=== PATIENT | male | born 1960 | race Caucasian/White ===

== ENCOUNTER → 2021-11-11 09:06 | Outpatient (BNVA) | payer OTHER, MEDICARE, SELFPAY | PROVIDERS: Visit Provider Nurse Practitioner Family | DX: I10 Essential (primary) hypertension (principal); E11.9 Type 2 diabetes mellitus without complications | CPT/HCPCS: 80053; 80061; 82043; 83036; 84443; 85025 ==

== ENCOUNTER 2021-12-09 15:55 | Observation (INO) | payer MEDICARE, SELFPAY ==
[2021-12-09] VITALS (8 sets, daily range): BP systolic 122–166; BP diastolic 76–105; PULSE 88–97; RESP 16–20; TEMP 36.2–36.7; O2SAT 86–98; BMI 29.8
--- NOTE | 2021-12-09 16:03 | ECG_ITS ---
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 Measurements Intervals [place] Rate: 96 P: 36 OH: 154 QRS: -11 QRSD: 110 T: 15 QT: 359 QTc: 455 Interpretive Statements SINUS RHYTHM No previous ECG available for comparison Electronically Signed On 12-09-2021 18:30:06 CDT by Gonsalo Ni M.D. [id number]
--- NOTE | 2021-12-09 16:09 | XRR_ITS ---
PROCEDURE INFORMATION: Exam: XR Chest Exam date and time: 12/09/2021 4:35 PM Age: 61 years old Clinical indication: Pain; Angina pectoris; Additional info: Chest pain TECHNIQUE: Imaging protocol: XR of the chest. Views: 1 view. COMPARISON: No relevant prior studies available. FINDINGS: Lungs: Unremarkable. No consolidation. Pleural spaces: Unremarkable. No pleural effusion. No pneumothorax. Heart/Mediastinum: Unremarkable. No cardiomegaly. Bones/joints: Unremarkable. XR/XR chest 1V portable [id number] IMPRESSION: No acute findings.
--- NOTE | 2021-12-09 16:15 | ED_ITS ---
HPI - Chest Pain General: Chief Complaint: Chest Pain Stated Complaint: chest pain Time Seen by Provider: 12/09/21 16:14 [facility] PFSH: Social History Smoking and tobacco status: never smoked Course Vital Signs: Vital signs: Vital Signs Temperature 97.1 F L 12/09/21 16:03 Pulse Rate 97 12/09/21 16:03 Respiratory Rate 16 12/09/21 16:03 Blood Pressure 166/96 12/09/21 16:03 Pulse Oximetry 98 12/09/21 16:03 Discharge Plan Discharge Condition: Stable Prescriptions: No Action tramadol 50 mg tablet 50 mg PO DAILY 0RF metformin 500 mg tablet 1,000 mg PO DAILY Qty: 60 0RF lisinopril 10 mg tablet 10 mg PO DAILY Qty: 90 3RF Tresiba FlexTouch U-200 200 unit/mL (3 mL) insulin pen 53 unit SUBCUT DAILY Qty: 9 2RF Coding Level of Care Code ED Nondestructive Tester for Kate Reyes
--- NOTE | 2021-12-09 16:15 | ED_ITS ---
HPI - General Adult General: Chief complaint: Chest Pain Stated complaint: chest pain Time Seen by Provider: 12/09/21 16:14 History of Present Illness: HPI: This is a [61]yo patient hx of DM, HTN, CAD w/ stent x 1 presenting to the ED complaining of acute sudden onset intermittent pressure-like chest pain x20 minutes. This occurred around 2 PM today. Patient tells me that he discontinued taking his aspirin about 40 weeks ago. Since then, patient has been doing well. Patient tells me that the chest pressure he experienced earlier today is similar to his prior episode of heart attack in 2014 for which he presented to [place] emergency room and had a stent placed. Patient not currently followed by any stitchdowns toe former. Patient has not been taking Plavix. No associated with shortness of breath, chest pain or dyspnea on exertion. Pain is not tearing in nature and does not radiate to the back. Pain not associated with vomiting or PO intake. Denies any recent sympatho mimetic drug use. Patient denies any cough. Denies palpitations, dysphagia, diaphoresis, radiation of pain to bilateral arms, jaw. Denies F/N/V/D. Patient denies any recent immobility, surgery, unilateral leg swelling, or prior PE. Patient denies any orthopnea. Onset: 2hr ago Duration: 20 minutes Location: home Severity: moderate Associated symptoms: Reports chest pain; Deny dyspnea, nausea, rash, palpitations or vomiting Review of Systems Const: Denies: fever(s) or chills Eyes: Denies: change in vision ENMT: Denies: mouth pain Card: Reports: chest pain; Denies: palpitations Resp: Denies: dyspnea or non-productive cough GI: Denies: abdominal pain, nausea, vomiting or diarrhea : Denies: dysuria Musc: Denies: extremity pain Skin/Breast: Denies: rash or new lesions Neuro: Denies: weakness in extremities Psych: Reports: other (Normal mood) Cash/Lymph: Denies: easy bruising PFS ED PFSH: Medical History Diabetes Social History Smoking and tobacco status: never smoked Alcohol intake: never Substance/Drug Use: never Physical Exam Const: COMMON NORMALS: alert HENMT: COMMON NORMALS: atraumatic HEAD & SCALP: atraumatic MOUTH: moist mucous membranes not abnormal Eye: COMMON NORMALS: EOMs intact bilaterally and conjunctivae normal CONJUNCTIVA: Yes conjunctivae normal Neck/C-Spine: COMMON NORMALS: full ROM and supple Resp: COMMON NORMALS: normal respiratory effort and clear to auscultation bilaterally AUSCULTATION: clear to auscultation bilaterally Cardio: COMMON NORMALS: regular rate RATE: regular rate OTHER: 2+ radial pulses b/l GI: COMMON NORMALS: Soft to palpation and non-tender PALPATION: Yes Soft to palpation Extremity: COMMON NORMALS: full ROM Neuro: SENSORIUM/ORIENTATION: Yes alert MOTOR EXAM: No Abnormal motor s trength present and Other motor observations present (no focal motor deficits) Psych: COMMON NORMALS: speech normal SPEECH: Yes normal speech MOOD & AFFECT: Yes euthymic mood Course Vital Signs: Vital signs: Vital Signs Temperature 97.1 F L 12/09/21 16:03 Pulse Rate 97 12/09/21 16:03 Respiratory Rate 16 12/09/21 16:03 Blood Pressure 166/96 12/09/21 16:03 Pulse Oximetry 98 12/09/21 16:03 MDM - General Adult Medical Decision Making [61]yo patient w/ hx of DM, HTN, CAD s/p stent x 1 presenting to the ED with evaluation of new onset chest presssure lasting for 20 minutes. HDS, pulse 2+ radially bilaterally, no signs of fluid overload, AAOx3, neuro exam intact. Cu rrently chest pain free Workup: ECG x 2, CXR, CBC, BMP, Troponin x2 Interventions: ASA Findings: ECG: No overt evidence of STEMI, hyperacute T waves, localizable STD or T wave inversions. No evidence of Brugada?s sign, delta wave, epsilon wave, significantly prolonged QTc, or malignant arrhythmia. No Q waves. Other Labs unremarkable for emergent problems. CXR: Without PTX, PNA, or widened mediastinum Last Heart Catheterization: 2013 [7:15pm] On reassessment, the patient is HDS, no complaints of persistent chest pain in the ED after evaluation. ECG is non-ischemic. Troponin x2 with delta less than 5. At the present time, given patient is not medically optimized, not followed by Cardiology, has not been taking his aspirin/plavix and has a stent, the decision was made to admit patient for stress test and further workup. Disposition: admission Lab Data : 12/09/21 16:25 12/09/21 16:25 Radiology Impressions Chest X-Ray 12/09/21 16:09 IMPRESSION: No acute findings. Laboratory Results WBC 9.5 10^3/uL (4.0-10.0) 12/09/21 16:25 RBC 4.81 10^6/uL (4.1-5.3) 12/09/21 16:25 Hgb 14.6 g/dL (11.7-16.6) 12/09/21 16:25 Hct 41.5 % (42.0-52.0) L 12/09/21 16:25 MCV 86.3 fl (80-94) 12/09/21 16:25 MCH 30.4 pg (28.0-34.0) 12/09/21 16:25 MCHC 35.2 g/dL (30.0-36.0) 12/09/21 16:25 RDW 12.5 % (12.1-15.1) 12/09/21 16:25 Plt Count 273 10^3/cmm (130-400) 12/09/21 16:25 MPV 10.2 fL (7.4-10.4) 12/09/21 16:25 Neut % (Auto) 67.1 % 12/09/21 16:25 Lymph % (Auto) 23.1 % 12/09/21 16:25 Darke % (Auto) 6.9 % 12/09/21 16:25 Eos % (Auto) 2.3 % 12/09/21 16:25 Baso % (Auto) 0.3 % 12/09/21 16:25 Neut # (Auto) 6.37 10^3/uL (1.8-7.7) 12/09/21 16:25 Lymph # (Auto) 2.2 10^3/uL (0.8-4.8) 12/09/21 16:25 Darke # (Auto) 0.7 10^3/uL (0.2-0.9) 12/09/21 16:25 Eos # (Auto) 0.2 10^3/uL (0.0-0.8) 12/09/21 16:25 Baso # (Auto) 0.0 10^3/uL (0.0-0.1) 12/09/21 16:25 Nucleated RBC % (auto) 0 % 12/09/21 16:25 Nucleated RBCs # 0.0 /100WBC 12/09/21 16:25 Sodium 138 mmol/L (136-145) 12/09/21 16:25 Potassium 4.4 mmol/L (3.5-5.1) 12/09/21 16:25 Chloride 101 mmol/L (98-107) 12/09/21 16:25 Carbon Dioxide 25 mmol/L (22-29) 12/09/21 16:25 Anion Gap 16.4 (5-19) 12/09/21 16:25 BUN 21 mg/dL (8-23) 12/09/21 16:25 Creatinine 0.8 mg/dL (0.7-1.2) 12/09/21 16:25 GFR Calculation 97.6 mL/min (90-130) 12/09/21 16:25 Glucose 335 mg/dL (65-115) H 12/09/21 16:25 POC Glucose 278 mg/dL (70-110) H 12/09/21 16:46 Calculated Osmolality 302 mOsm/kg (285-295) H 12/09/21 16:25 Calcium 9.4 mg/dL (8.5-10.5) 12/09/21 16:25 Troponin T Baseline 22 ng/L (0-15) H 12/09/21 16:25 Imaging Data Other Imaging: Radiologist's impression: [address] [address] XRay Report Signed Patient: Bairon Hodge Unit #: [id number] : 1960 Age/Sex: 61 / M ADM Date: 12/09/21 Loc: ER Room/Bed: Attending Dr: Ordering Provider/Ordering MD: Nadine Nash MD Date of Service: 12/09/21 Procedure(s): XR chest 1V portable [id number] Accession Number(s): [id number] Report Number: [id number] PROCEDURE INFORMATION: Exam: XR Chest Exam date and time: 12/09/2021 4:35 PM Age: 61 years old Clinical indication: Pain; Angina pectoris; Additional info: Chest pain TECHNIQUE: Imaging protocol: XR of the chest. Views: 1 view. COMPARISON: No relevant prior studies available. FINDINGS: Lungs: Unremarkable. No consolidation. Pleural spaces: Unremarkable. No pleural effusion. No pneumothorax. Heart/Mediastinum: Unremarkable. No cardiomegaly. Bones/joints: Unremarkable. XR/XR chest 1V portable [id number] IMPRESSION: No acute findings. ? Dictated By: Elias Deshpande MD Signed By: Elias Deshpande MD Signed Date/Time: 12/09/21 1647 DD/ 1635 Discharge Plan Discharge Patient Disposition: Admitted As Inpatient Clinical Impression: Chest pressure Condition: Stable Coding Level of Care Code ED Telegraph Messenger for Chg Fwd Exam Comprehensive
[2021-12-09] MEDS: aspirin 325 mg Tablet PO (16:36)
--- NOTE | 2021-12-09 16:37 | PC.PHAR ---
pt states he takes care of his own medications-pt states he stop taking his aspirin 81mg hs because he saw on tic tok it would kill him-pt states not taken in 4 weeks or so-notes are made in the pharmacy comments
[2021-12-09 16:39] LABS: Basophils % 0.3 %; Eosinophils # 0.2 10^3/uL (0.0-0.8); Eosinophils % 2.3 %; Hematocrit 41.5 % (42.0-52.0); Hemoglobin 14.6 g/dL (11.7-16.6); Lymphocytes # 2.2 10^3/uL (0.8-4.8); Lymphocytes % 23.1 %; Mean Corpuscular HGB Conc 35.2 g/dL (30.0-36.0); Mean Corpuscular Hemoglobin 30.4 pg (28.0-34.0); Mean Corpuscular Volume 86.3 fl (80-94); Mean Platelet Volume 10.2 fL (7.4-10.4); Monocytes # 0.7 10^3/uL (0.2-0.9); Monocytes % 6.9 %; Neutrophils # 6.37 10^3/uL (1.8-7.7); Neutrophils % 67.1 %; Nucleated Red Blood Cells % 0 %; Platelet Count 273 10^3/cmm (130-400); Red Blood Count 4.81 10^6/uL (4.1-5.3); Red Cell Distribution Width 12.5 % (12.1-15.1); White Blood Count 9.5 10^3/uL (4.0-10.0)
[2021-12-09 16:50] LABS: Glucose Point of Care 278 mg/dL (70-110)
[2021-12-09 17:11] LABS: Troponin(5th) Baseline 22 ng/L (0-15)
[2021-12-09 17:17] LABS: Anion Gap 16.4 (5-19); Blood Urea Nitrogen 21 mg/dL (8-23); Calcium 9.4 mg/dL (8.5-10.5); Carbon Dioxide 25 mmol/L (22-29); Chloride 101 mmol/L (98-107); Glomerular Filtration Rate 97.6 mL/min (90-130); Glucose 335 mg/dL (65-115); Osmolality Calculated 302 mOsm/kg (285-295); Potassium 4.4 mmol/L (3.5-5.1); Sodium 138 mmol/L (136-145)
--- NOTE | 2021-12-09 18:09 | ECG_ITS ---
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 Measurements Intervals [place] Rate: 91 P: 26 MI: 144 QRS: -9 QRSD: 113 T: 24 QT: 366 QTc: 452 Interpretive Statements SINUS RHYTHM INCOMPLETE RIGHT BUNDLE BRANCH BLOCK [90+ ms QRS DURATION, TERMINAL R IN V1/V2, 40+ ms S IN I/aVL/V4/V5/V6] NONSPECIFIC ST ELEVATION [0.05+ mV ST ELEVATION] Compared to ECG 12/09/2021 16:12:27 Incomplete right bundle-branch block now present ST (T wave) deviation now present Electronically Signed On 12-09-2021 18:33:20 CDT by Gonsalo Ni M.D. [id number]
--- NOTE | 2021-12-09 18:17 | PC.NURSE ---
EKG done at 1812 and shown to ER doctor
--- NOTE | 2021-12-09 19:18 | P.HP_ITS ---
Providers/Chief Complaint Admitting Physician: Ian Jessica MD Chief Complaint: chest pain History of Present Illness Bairon Hodge is a 61 year old male with a past medical history significant for type 2 diabetes mellitus, hypertension, obesity, and coronary artery disease with prior myocardial infarction status post stent x1 in 2013 at [facility] who presents to the emergency department complaining of left-sided chest pain x1 day. Patient reports he was in his usual state of health until today. He reports he cut his yard this morning. He states that he drove to the store afterwards and around 1 PM while standing and talking to another person he developed left-sided chest pressure associated with shortness of breath. He reports the pain was severe for about 20 minutes. States he had to leave and drive home due to the severity of the pain. States once at home, he took 2 Kay aspirins. States that pain slowly let up. He reports the pain was similar to his prior heart attack in 2013 prompting him to be evaluated at the emergency department. Pain eventually resolved around 4 PM for total of 3 hours duration. Of note, patient states he quit taking his aspirin about 3 to 4 weeks ago after hearing on TV was bad for you. He denies any associated fever, chills, palpitations, diaphoresis, or radiation of the pain. In the ED, troponin was within normal limits and EKG revealed some nonspecific T wave changes. Review of Systems Narrative: A complete review of systems was obtained and is negative except as stated in HPI. Medications/Allergies Home Medications Medication Instructions Recorded Confirmed Last Taken Type insulin degludec 200 unit/mL (3 54 unit SUBCUT BEDTIME 12/09/21 12/09/21 12/08/21 History mL) subcutaneous pen (Tresiba FlexTouch U-200 insulin) lisinopril 10 mg tablet 10 mg PO BEDTIME 12/09/21 12/09/21 12/08/21 History metformin 500 mg tablet 1,000 mg PO BEDTIME 12/09/21 12/09/21 12/08/21 History Allergies Allergy/AdvReac Type Severity Reaction Status Date / Time Penicillins Allergy Unknown Verified 12/09/21 16:35 PFSH Acute PFSH: Medical History Coronary artery disease Diabetes Hypertension Obesity Type 2 diabetes mellitus Family History Father Parkinson disease Mother Emphysema lung Social History Smoking and tobacco status: never smoked Alcohol intake: never Substance/Drug Use: never Vitals/I&O/Wt Last Vital Signs Temp 97.1 F L 12/09/21 16:03 Pulse 97 12/09/21 16:03 Resp 16 12/09/21 16:03 BP 166/96 12/09/21 16:03 Pulse Ox 98 12/09/21 16:03 Weight last 48 hrs Weight 99.79 kg Physical Exam Narrative: General: Patient is awake and alert. Head: Normocephalic. Atraumatic. EOM intact. Neck: No JVD. Cardiovascular: RRR. No gallops. No murmurs. No peripheral edema. Lungs: Clear to auscultation, no use of accessory muscles, no crackles or wheezes. Skin: No jaundice. No rashes. Abdomen: Normal bowel sounds, abdomen soft and nontender. Genito Urinary: Genital exam not performed since complaints not related. Rectal: Rectal exam not performed since no symptoms indicated blood loss. Extremeties: No cyanosis or clubbing. Musculoskeletal: 5/5 strength, normal range of motion, no swollen or erythem atous joints. Neurological: Moves all 4 extremities. No myoclonus. Data : 12/09/21 16:25 12/09/21 16:25 A&P Assessment and plan (1) Chest pressure: Presentation concerning for unstable angina Multiple risk factors including prior CAD, prior TN, type 2 diabetes mellitus, obesity, hypertension EKG with nonspecific T wave changes Repeat EKG in a.m. Telemetry monitoring Initial troponin negative Trend troponins N.p.o. after midnight Myocardial stress test ordered Transthoracic echocardiogram A1c and lipids for risk stratification Start aspirin High intensity statin Nitroglycerin as needed Status: Acute (2) Coronary artery disease: With history of TN and cardiac stent in 2013 Management as above Status: Acute (3) Hypertension: Continue home lisinopril Status: Acute (4) Type 2 diabetes mellitus: Hold home metformin Lantus 40 units nightly (home dose 54 units) Sliding scale insulin correction Status: Acute (5) Obesity: Patient would eventually benefit from weight loss Status: Acute Plan DVT prophylaxis: Lovenox CODE STATUS: Full code Attestations Medical Necessity Statement*: Patient presents with chest pain with expected hospitalization not to cross 2 midnights. Coding Level of Care Code Acute Customer Professional for Winnieg Fwd Diagnoses Chest pressure R07.89 Hypertension I10 Type 2 diabetes mellitus E11.9 Coronary artery disease I25.10 Obesity E66.9
[2021-12-09 19:19] LABS: Troponin 5 2HR 17.89 ng/L (0-15); Troponin 5 2HR Delta -4.11 ABS# (0-10)
[2021-12-09 20:54] LABS: Chol HDL Ratio 3.35 mg/dL (1.0-5.00); Cholesterol 104 mg/dL (0-200); HDL Cholesterol 31 mg/dL (60-100); LDL Cholesterol Calculated 40 mg/dL (50-129); LDL HDL Ratio 1.29 RATIO (0.00-3.22); Triglycerides 167 mg/dL (0-150)
--- NOTE | 2021-12-09 21:34 | PC.NURSE ---
Patient report called to floor.
[2021-12-09 23:00] LABS: Glucose Point of Care 320 mg/dL (70-110)
[2021-12-09] MEDS: lisinopril 10 mg Tablet PO (23:12)
[2021-12-09] MEDS: enoxaparin 40 mg/0.4 mL Syringe SUBCUT (23:12)
[2021-12-09] MEDS: atorvastatin 40 mg Tablet 80 MG PO (23:12)
[2021-12-09] MEDS: insulin lispro 100 unit/1 mL SUBCUT (23:21)
--- NOTE | 2021-12-09 23:30 | PC.NURSE ---
Patient refusing Humalog, Lovenox, and Lantus. After extensive time spent educating patient, patient agreeable to take Humalong and Lovenox, but still refusing Lantus. Patient states on the internet, it says all the medications they put in your body to terrible things to you.
[2021-12-09 23:59] LABS: Troponin 5 6HR 15.51 ng/L (0-15)
[2021-12-10] VITALS: BP 122/83; PULSE 86; RESP 17; TEMP 36.5; O2SAT 94
[2021-12-10 00:01] LABS: Troponin 5 6HR Delta -6.49 ng/L (0-12)
[2021-12-10 00:09] LABS: Estmated Average Glucose 255; Hemoglobin A1C 10.5 % (4.0-6.0)
[2021-12-10 01:11] LABS: Add Urine Microscopic? NO; Charge for UA Resulting for Rev
[2021-12-10 01:16] LABS: Bilirubin Urine Neg (Negative); Blood Urine Neg (Negative); Glucose Urine UA 4+ (Normal); Ketones Urine Negative (Negative); Leukocyte Esterase Urine Negative (Negative); Nitrate Urine Negative (Negative); Protein Urine Neg (Negative); Specific Gravity, Urine 1.015 (1.005-1.030); Urine Appearance Clear (CLEAR); Urine Color Yellow (Yellow); Urobilinogen Urine Norm (Negative); pH Urine 6 (5-7)
[2021-12-10 03:30] VITALS: PULSE 82
--- NOTE | 2021-12-10 03:50 | USCV_ITS ---
Ayesha Bairon Age: 61 Gender: M : 1960 Exam Date: 12/10/2021 03:58 Ordering Phys: Ian Jessica MD Technologist: CKVeda [place] [facility] [place]: chest pain BP: 116 / 78 HR: 79 Rhythm: Sinus Technical Quality: Adequate MEASUREMENTS (Male / Female) Normal Values 2D ECHO LV Diastolic Diameter PLAX 4.8 cm 4.2 - 5.9 / 3.9 - 5.3 cm LV Systolic Diameter PLAX 2.8 cm IVS Diastolic Thickness 1.3 cm 0.6 - 1.0 / 0.6 - 0.9 cm IVS Systolic Thickness 1.7 cm LVPW Diastolic Thickness 1.3 cm 0.6 - 1.0 / 0.6 - 0.9 cm LVPW Systolic Thickness 2.8 cm LVOT Diameter 2.0 cm LV Ejection Fraction 2D Teich 67.8 % LV Ejection Fraction MOD 2C 35.6 % LV Ejection Fraction 2C AL 32.8 % LA Diameter 4.5 cm LA Width 4.7 cm LA Height 6.2 cm RA Width 3.6 cm RA Height 5.3 cm Aorta at Sinotubular Diameter 2.8 cm M-MODE Aortic Annulus Diameter 3.5 cm LA Ao Ratio MM 1.5 MV E Point Septal Separation 0.4 cm DOPPLER TR Peak Velocity 177.9 cm/s TR Peak Gradient 12.7 mmHg TR Mean Velocity 141.6 cm/s TR Mean Gradient 9.3 mmHg TR Velocity Time Integral 45.4 cm Right Atrial Pressure 10.0 mmHg Pulmonary Artery Systolic Pressu 22.7 mmHg PV Peak Velocity 79.0 cm/s RV Acceleration Time 0.1 s RV Ejection Time 0.3 s RV AcT/ET 0.5 FINDINGS Left Ventricle Normal left ventricular cavity size. Mildly increased left ventricular wall thickness. Normal left ventricular systolic function. Left ventricular ejection fraction is estimated at 55- 60 %. There is possible mild hypokinesis of basal inferolateral wall. Right Ventricle Normal right ventricular size and systolic function. Right Atrium Right atrium not well visualized. Left Atrium Mildly increased left atrial size. Mitral Valve Structurally normal mitral valve. Aortic Valve Structurally normal trileaflet aortic valve. Tricuspid Valve Structurally normal tricuspid valve. Pulmonic Valve Pulmonic valve not well visualized. Pericardium No pericardial effusion. Aorta Normal size aortic root and proximal ascending aorta. IVC Inferior vena cava not visualized. CONCLUSIONS 1. This is a limited and technically difficult echocardiogram with off axis images. Contrast could not be used as patient did not have an IV. 2. Normal left ventricular cavity size. Mildly increased left ventricular wall thickness. Normal left ventricular systolic function. Left ventricular ejection fraction is estimated at 55- 60 %. There is possible mild hypokinesis of basal inferolateral wall. 3. Repeat study with echo contrast is recommended. 4. No prior similar studies to compare. Concha Lassiter MD (Electronically Signed) Final Date: 10 December 2021 13:24 S
[2021-12-10 03:56] VITALS: BP 116/78; PULSE 76; RESP 17; TEMP 36.6; O2SAT 97
[2021-12-10 03:58] LABS: Troponin T (5th) Once 23 ng/L (0-15)
--- NOTE | 2021-12-10 06:00 | ECG_ITS ---
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 Interpretive Statements NAME OF STUDY: LEXISCAN SESTAMIBI STRESS TEST INDICATION: [Chest Pain] Procedure: At the baseline, the blood pressure was 114/75 mmHg with a heart rate of 81 bpm. The electrocardiogram showed normal sinus rhythm, normal axis with normal ST and T's. The Lexiscan was infused over a period of 20 seconds. A total of 0.4 mg of Lexiscan was infused. The stress phase was continued for a total of 5 minutes. Heart rate was at the end of stress phase was 88 bpm and a blood pressure of 124/75 mmHg. The EKG at the peak infusion revealed since normal sinus rhythm with no significant ST-T wave changes. Sestamibi was injected 20 seconds after the Lexiscan infusion. Blood pressure at the end of recovery phase was 124/82 mmHg with a heart rate of 88 bpm. Conclusion: 1. Normal EKG response to Lexiscan infusion 2. No Lexiscan induced chest pain or cardiac arrhythmia. 3. Normal blood pressure and heart rate response. 4. Sestamibi/sestamibi perfusion scan pending; see separate report. Electronically Signed On 01-17-2022 11:46:55 CDT by Gonsalo Ni M.D. [id number]
--- NOTE | 2021-12-10 06:00 | ECG_ITS ---
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 Measurements Intervals [place] Rate: 82 P: 34 PA: 136 QRS: 4 QRSD: 120 T: 35 QT: 395 QTc: 464 Interpretive Statements SINUS RHYTHM POSSIBLE RIGHT VENTRICULAR CONDUCTION DELAY [RSR (QR) IN V1/V2] NONSPECIFIC T-WAVE ABNORMALITY Compared to ECG 12/09/2021 18:13:12 T-wave abnormality now present Incomplete right bundle-branch block no longer present ST (T wave) deviation no longer present Electronically Signed On 12-10-2021 22:25:44 CDT by Concha Lassiter M.D. [id number]
[2021-12-10 06:43] LABS: Glucose Point of Care 171 mg/dL (70-110)
[2021-12-10] MEDS: regadenoson 0.4 Mg/5 ml Syringe IVP (07:27)
[2021-12-10 07:30] VITALS: BP 124/82; PULSE 87
[2021-12-10 09:39] VITALS: BP 157/92; PULSE 82; RESP 17; TEMP 36.4; O2SAT 99
--- NOTE | 2021-12-10 11:10 | PC.CHAP ---
Pastoral Care Encounter/Spiritual Assessment Type of Contact [] Declined drug and alcohol counsellor visit [] Patient/Family/Request visit [] Outpatient visit [] Follow-up visit [] Physician referral [] Code/Alert [x] Routine visit [] Staff referral [] Actively dying [] Patient sleeping [] Family support [] [] Out of room [] Palliative care [] [] Receiving care in room [] Pre-surgical visit [] Trauma [] Long length of stay [] ICU visit [] Other: Relational/Emotional Strength [x] Patient feels connected with others/family/visitors/staff [] Distress [] Loneliness/isolation [] Abandonment Spirituality of Patient [x] Person of Brittany [x] Attends Holiness of their Brittany [x] Believes in Prayer [] Reads Bible or Restorationist materials [] There are Spiritual issues to be addressed Medical I D Sales Interventions [x] Prayer [x] Active listening [x] Non-anxious presence [] Spiritual/emotional support [] Crisis/trauma care [] Spiritual counseling [] Bereavement support [] Provided bereavement packet [] Provided Bible/devotional materials [] Provided toy/stuffed animal, coloring book to patient or family member [] Provided Communion [] Anointing/[place] [] Salvation [x] Completed spiritual assessment [] Other: Impact on Illness or Injury [] Angry [] Fearful [] Anxious [] Often cries [] Exhaustion [] Unable to work [] Unable to attend judaism [] Unable to walk/stand [] Unable to read [] Unable to drive [] Unable to eat/drink [] Unable to sleep [] Unable to be with family [] Patient intubated [] Other: Summary Time spent with patient 10 min
[2021-12-10 11:25] LABS: Glucose Point of Care 193 mg/dL (70-110)
--- NOTE | 2021-12-10 11:54 | PM.DCS ---
Discharge Providers Date of Admission: 12/09/21 19:37 Date of Discharge: December 10, 2021 Attending Provider at Admission: Ian Jessica MD Attending Provider at Discharge: Corbin Carney MD Diagnoses at Discharge Discharge Diagnosis (1) Chest pressure: Status: Acute (2) Coronary artery disease: Status: Acute (3) Hypertension: Status: Acute (4) Type 2 diabetes mellitus: Status: Acute (5) Obesity: Status: Acute Reason for Visit Reason for Visit: chest pain Brief History: History as per HPI: Bairon Hodge is a 61 year old male with a past medical history significant for type 2 diabetes mellitus, hypertension, obesity, and coronary artery disease with prior myocardial infarction status post stent x1 in 2013 at [facility] who presents to the emergency department complaining of left-sided chest pain x1 day.? Patient reports he was in his usual state of health until today.? He reports he cut his yard this morning.? He states that he drove to the store afterwards and around 1 PM while standing and talking to another person he developed left-sided chest pressure associated with shortness of breath.? He reports the pain was severe for about 20 minutes.? States he had to leave and drive home due to the severity of the pain.? States once at home, he took 2 Kay aspirins.? States that pain slowly let up.? He reports the pain was similar to his prior heart attack in 2013 prompting him to be evaluated at the emergency department.? Pain eventually resolved around 4 PM for total of 3 hours duration. Of note, patient states he quit taking his aspirin about 3 to 4 weeks ago after hearing on TV was bad for you.? He denies any associated fever, chills, palpitations, diaphoresis, or radiation of the pain.? In the ED, troponin was within normal limits and EKG revealed some nonspecific T wave changes. Hospital Course Hospital Course Patient went to the hospital further evaluation and management of chest pressure. He underwent cardiac stress test next morning on 12/10 which was negative for any acute ischemia. During hospitalization he was found to have elevated blood pressures for which his antihypertensives were adjusted. He was also found to have an A1c of 10.3. Patient did state that there have been times during the day when he feels very lethargic and becomes better after taking insulin at night. Patient was counseled in detail regarding moderate dose insulin sliding scale to be taken 3 meals after checking his blood sugar daily. He verbalized understanding and is agreeable to start short acting insulin prior to meals. He is been discharged hemodynamically stable condition on lisinopril 40 mg daily which is higher than his home dose. He is advised to check his blood pressure daily at home and follow-up with a primary care provider within next 1 week for further adjustment of antihypertensives. He is also being discharged on glimepiride 1 mg daily along with his home dose of metformin and Tresiba. Moderate dose insulin sliding scale of insulin lispro has been added to his medication list. He is to check his blood sugar prior to meals 3 times a day and take insulins accordingly. Patient should have a repeat HbA1c in 6 months. Physical Exam Narrative: General: Patient is awake and alert. Head: Normocephalic. Atraumatic. EOM intact. Neck: No JVD. Cardiovascular: RRR. No gallops. No murmurs. No peripheral edema. Lungs: Clear to auscultation, no use of accessory muscles, no crackles or wheezes. Skin: No jaundice. No rashes. Abdomen: Normal bowel sounds, abdomen soft and nontender. Genito Urinary: Genital exam not performed since complaints not related. Rectal: Rectal exam not performed since no symptoms indicated blood loss. Extremeties: No cyanosis or clubbing. Musculoskeletal: 5/5 strength, normal range of motion, no swollen or erythematous joints. Neurological: Moves all 4 extremities. No myoclonus. Discharge Data Studies Completed and Pending Completed Studies During Hospitalization Category Date Time Status Sestamibi Stress Test Request Routine Exams 12/10/21 06:00 Draft XR chest 1V portable [id number] Stat Exams 12/09/21 16:09 Completed NM pa perf SPECT r/s* [id number] Routine Nuc Med 12/10/21 19:20 Completed Pending at discharge Category Date Time Status Sestamibi Stress Test Request Routine Exams 12/10/21 06:00 Ordered CV. echo lmt w/w contras [id number] Routine Ultrasound 12/10/21 03:50 Taken Radiology Impressions Chest X-Ray 12/09/21 16:09 IMPRESSION: No acute findings. Lexiscan perfusion test: PERFUSION FINDINGS ?There is moderate and sized fixed perfusion defect noted in apical lateral and?inferolateral conner.? This is consistent with prior infarct and left circumflex?artery territory.? No evidence of ischemia seen. ?FUNCTIONAL RESULTS ? ? (calculated via Gated SPECT) ? Stress Image LV EF (%):? ? 62 ? Stress EDV (mL):89 ? TID:? 0.98 ? Stress ESV (mL):34 ?FUNCTIONAL FINDINGS: ?There is normal left ventricular systolic function. ?IMPRESSIONS ?1. Abnormal myocardial perfusion imaging with prior infarct seen in the left?circumflex artery territory with no evidence of ischemia ?2. LV systolic function is normal ?Gonsalo Ni MD ?(Electronically Signed) ?Final Date:? ? ? 10 December 2021 ? 09:20 Laboratory Results WBC 9.5 10^3/uL (4.0-10.0) 12/09/21 16:25 RBC 4.81 10^6/uL (4.1-5.3) 12/09/21 16:25 Hgb 14.6 g/dL (11.7-16.6) 12/09/21 16:25 Hct 41.5 % (42.0-52.0) L 12/09/21 16:25 MCV 86.3 fl (80-94) 12/09/21 16:25 MCH 30.4 pg (28.0-34.0) 12/09/21 16:25 MCHC 35.2 g/dL (30.0-36.0) 12/09/21 16:25 RDW 12.5 % (12.1-15.1) 12/09/21 16:25 Plt Count 273 10^3/cmm (130-400) 12/09/21 16:25 MPV 10.2 fL (7.4-10.4) 12/09/21 16:25 Neut % (Auto) 67.1 % 12/09/21 16:25 Lymph % (Auto) 23.1 % 12/09/21 16:25 [place] % (Auto) 6.9 % 12/09/21 16:25 Eos % (Auto) 2.3 % 12/09/21 16:25 Baso % (Auto) 0.3 % 12/09/21 16:25 Neut # (Auto) 6.37 10^3/uL (1.8-7.7) 12/09/21 16:25 Lymph # (Auto) 2.2 10^3/uL (0.8-4.8) 12/09/21 16:25 [place] # (Auto) 0.7 10^3/uL (0.2-0.9) 12/09/21 16:25 Eos # (Auto) 0.2 10^3/uL (0.0-0.8) 12/09/21 16:25 Baso # (Auto) 0.0 10^3/uL (0.0-0.1) 12/09/21 16:25 Nucleated RBC % (auto) 0 % 12/09/21 16:25 Nucleated RBCs # 0.0 /100WBC 12/09/21 16:25 Sodium 138 mmol/L (136-145) 12/09/21 16:25 Potassium 4.4 mmol/L (3.5-5.1) 12/09/21 16:25 Chloride 101 mmol/L (98-107) 12/09/21 16:25 Carbon Dioxide 25 mmol/L (22-29) 12/09/21 16:25 Anion Gap 16.4 (5-19) 12/09/21 16:25 BUN 21 mg/dL (8-23) 12/09/21 16:25 Creatinine 0.8 mg/dL (0.7-1.2) 12/09/21 16:25 GFR Calculation 97.6 mL/min (90-130) 12/09/21 16:25 Glucose 335 mg/dL (65-115) H 12/09/21 16:25 POC Glucose 193 mg/dL (70-110) H 12/10/21 11:17 Estimat Average Glucose 255 12/09/21 16:25 Hemoglobin A1c 10.5 % (4.0-6.0) H 12/09/21 16:25 Calculated Osmolality 302 mOsm/kg (285-295) H 12/09/21 16:25 Calcium 9.4 mg/dL (8.5-10.5) 12/09/21 16:25 Troponin T Gen 5 ng/L 23 ng/L (0-15) H 12/10/21 03:26 Troponin T Baseline 22 ng/L (0-15) H 12/09/21 16:25 Troponin T 120 Minute 17.89 ng/L (0-15) H 12/09/21 18:47 Delta Troponin T -4.11 ABS# (0-10) L 12/09/21 18:47 Troponin T Hi Sens 6Hr 15.51 ng/L (0-15) H 12/09/21 23:20 Troponin T Hi Sens 6Hr Delta -6.49 ng/L (0-12) L 12/09/21 23:20 Triglycerides 167 mg/dL (0-150) H 12/09/21 16:25 Cholesterol 104 mg/dL (0-200) 12/09/21 16:25 LDL Cholesterol, Calc 40 mg/dL (50-129) L 12/09/21 16:25 HDL Cholesterol 31 mg/dL (60-100) L 12/09/21 16:25 LDL/HDL Ratio 1.29 RATIO (0.00-3.22) 12/09/21 16:25 Cholesterol/HDL Ratio 3.35 mg/dL (1.0-5.00) 12/09/21 16:25 Urine Color Yellow (Yellow) 12/10/21 01:00 Urine Appearance Clear (CLEAR) 12/10/21 01:00 Urine pH 6 (5-7) 12/10/21 01:00 Ur Specific [place] 1.015 (1.005-1.030) 12/10/21 01:00 Urine Protein Neg (Negative) 12/10/21 01:00 Urine Glucose (UA) 4+ (Normal) H 12/10/21 01:00 Urine Ketones Negative (Negative) 12/10/21 01:00 Urine Blood Neg (Negative) 12/10/21 01:00 Urine Nitrate Negative (Negative) 12/10/21 01:00 Urine Bilirubin Neg (Negative) 12/10/21 01:00 Urine Urobilinogen Norm mg/dL (Negative) 12/10/21 01:00 Ur Leukocyte Esterase Negative (Negative) 12/10/21 01:00 Vitals Last Vital Signs Temp 97.5 F L 12/10/21 09:39 Pulse 82 12/10/21 09:39 Resp 17 12/10/21 09:39 BP 157/92 12/10/21 09:39 Pulse Ox 99 12/10/21 09:39 Discharge Plan Discharge Patient Disposition: Home Condition: Stable Prescriptions: New aspirin 81 mg Tablet,Delayed Release (Dr/Ec) 81 mg PO DAILY 30 Days Qty: 30 0RF insulin lispro 100 unit/mL insulin pen See Rx Instructions .ROUTE .COMPLEX Qty: 15 0RF Rx Instructions: 141-180 mg/dl 4 units/SQ 181-220 mg/dl 6 units/SQ 221-260 mg/dl 8 units/SQ 261-300 mg/dl 10 units/SQ 301-350 mg/dl 12 units/SQ 351-400 mg/dl 14 units/SQ greater than 400 mg/dl 16 units/SQ glimepiride 2 mg tablet 1 mg PO QAM Qty: 30 0RF Rx Instructions: administer with breakfast Continued metformin 500 mg tablet 1,000 mg PO BEDTIME 0RF Tresiba FlexTouch U-200 200 unit/mL (3 mL) insulin pen 54 unit SUBCUT BEDTIME 0RF atorvastatin 40 mg Tablet 40 mg PO QPM 0RF Changed lisinopril 10 mg tablet 40 mg PO BEDTIME Qty: 0 0RF Discharge Orders: Discharge Order (Routine); Ordered 12/10/21 Ordered By: Corbin Carney Referrals: Tonya Ovalles MD [Physician] - 02/04/22 2:15 pm Discharge Diet: Cardiac and Diabetic Discharge Activity: Resume usual activity and Increase activity as tolerated Patient Instructions: Opioid Safety Activity Restrictions/Additional Instructions: Take insulin as below. You should check your blood sugar daily 3 meals and take insulin as per directions. Continue taking your Tresiba as before. Continue taking metformin as before. Glimepiride oral has been added to your medication list as well. Insulin sliding scale is as below 141-180 mg/dl take 4 units/SQ ? 181-220 mg/dl take 6 units/SQ ? 221-260 mg/dl take 8 units/SQ ? 261-300 mg/dl take 10 units/SQ ? 301-350 mg/dl take 12 units/SQ ? 351-400 mg/dl take 14 units/SQ ? greater than 400 mg/dl take 16 units/SQ Please do not stop taking aspirin. Dose of lisinopril has been increased to 40 mg daily. Please check your blood pressure at home and maintain blood pressure diary and follow-up with a primary care provider within next 1 week for further adjustment of antihypertensives. Discharge Attestations Time Spent in Discharge Care*: greater than 30 min Specific Discharge Activities: educating patient, discussing with pcp/other providers, discussing with gearcase assembler/social workers/dc planners, documenting/other paperwork and evaluating patient/reviewing data Status at Discharge: Cognitive status at discharge: cognitively intact, Behavioral status at discharge: cooperative, Functional status at discharge: independent ambulation, Overall status at discharge: patient is back to baseline Quality Metrics Clinical Quality Measures [ No reported AMI, CVA or VTE this stay] Coding Level of Care Code Acute Chg FW DC note History Comprehensive Exam Comprehensive Medical Decision Making High Complexity Diagnoses Chest pressure R07.89 Coronary artery disease I25.10 Hypertension I10 Type 2 diabetes mellitus E11.9 Obesity E66.9
[2021-12-10 12:00] VITALS: BP 164/91; PULSE 82; RESP 18; O2SAT 97
--- NOTE | 2021-12-10 19:20 | NMCV_ITS ---
NM pa perf SPECT r/s* [id number] Bairon Hodge Age: 61 Gender: M : 1960 Exam Date: 12/10/2021 07:34 Ordering Phys: Ian Jessica MD Technologist: RACHNA Lora Exam Location: [facility] Indications: CHEST PAIN STRESS TEST Please see separate stress test report in [facility] for full findings IMAGE PROTOCOL Rest/Stress 1 Lexiscan Day Radiopharmaceutical Dose (mCi) Administration Site Administered by Rest: Tc-99m 10.9 IV RACHNA Wasserman Sestamibi Stress:Tc-99m 32.6 IV RACHNA Wasserman Sestamibi Rest: 10-Dec-2021 60 Discovery 630 Stress: 10-Dec-2021 30 Discovery 630 0.4mg Lexiscan. Images obtained in supine and prone position. SPECT RESULTS Technical Quality: Excellent Raw Data Analysis: Normal Image Corrections: No attenuation or motion correction applied Summed Stress Score: 4 Summed Rest Score: 6 Summed Difference Score: 0 PERFUSION FINDINGS There is moderate and sized fixed perfusion defect noted in apical lateral and inferolateral conner. This is consistent with prior infarct and left circumflex artery territory. No evidence of ischemia seen. FUNCTIONAL RESULTS (calculated via Gated SPECT) Stress Image LV EF (%): 62 Stress EDV (mL):89 TID: 0.98 Stress ESV (mL):34 FUNCTIONAL FINDINGS: There is normal left ventricular systolic function. IMPRESSIONS 1. Abnormal myocardial perfusion imaging with prior infarct seen in the left circumflex artery territory with no evidence of ischemia 2. LV systolic function is normal Gonsalo Ni MD (Electronically Signed) Final Date: 10 December 2021 09:20 S
--- NOTE | 2021-12-23 13:18 | PC.SOCIAL ---
Hospital F/U Spoke with patient about discharge. He denies any difficulties and states that he was able to get all of his medications. He has saw his PCP already.
== END 2021-12-10 12:50 | disposition home or self-care (01) ==
LOC: ER 17:01 → MEDSURG 20:13
PROVIDERS: Admitting Provider Internal Medicine; Emergency Provider Emergency Medicine; Visit Provider Student in an Organized Health Care Education/Training Program
DX: R07.89 Other chest pain (principal); I25.10 Atherosclerotic heart disease of native coronary artery without angina pectoris; I10 Essential (primary) hypertension; E11.9 Type 2 diabetes mellitus without complications; E66.9 Obesity, unspecified; Z68.30 Body mass index [BMI] 30.0-30.9, adult; I25.2 Old myocardial infarction; Z95.5 Presence of coronary angioplasty implant and graft; Z79.4 Long term (current) use of insulin; Z79.84 Long term (current) use of oral hypoglycemic drugs; I45.10 Unspecified right bundle-branch block
CPT/HCPCS: 36415; 36416; 71045; 78452; 80048; 80061; 81003; 82962; 83036; 84484; 85025; 93005; 93017; 93308; 96372; 99285; A9500; C8924; G0378; J1650; J1815; J2785; Q9956

== ENCOUNTER → 2022-02-24 11:05 | Outpatient (BNVA) | payer MEDICARE, SELFPAY | PROVIDERS: Visit Provider Family Medicine | DX: E11.9 Type 2 diabetes mellitus without complications (principal); G25.2 Other specified forms of tremor | CPT/HCPCS: 83036 ==

== ENCOUNTER 2024-02-25 11:00 | Oncology outpatient (recurring) (ONCR) | payer MEDICARE, SELFPAY ==
[2024-02-23 08:21] LABS: Basophils % 0.5 %; Eosinophils # 0.5 10^3/uL (0.0-0.8); Hematocrit 37.2 % (37-53); Lymphocytes # 1.8 10^3/uL (0.8-4.8); Lymphocytes % 30.6 %; Mean Corpuscular HGB Conc 34.1 g/dL (30-55); Mean Corpuscular Hemoglobin 30.5 pg (27-33); Mean Corpuscular Volume 89.2 fl (82-101); Mean Platelet Volume 9.3 fL (7.4-10.4); Monocytes # 0.5 10^3/uL (0.2-0.9); Monocytes % 8.8 %; Neutrophils % 51.9 %; Nucleated Red Blood Cells % 0 %; Platelet Count 185 10^3/cmm (157-399); Red Blood Count 4.17 10^6/uL (3.85-5.65); White Blood Count 5.78 10^3/uL (3.29-11.43)
[2024-02-23 08:43] LABS: Carcinoembryonic Antigen 1.9 ng/mL (0.0-4.7)
[2024-02-23 08:54] LABS: Alanine Aminotransferase 20 U/L (0-41); Albumin Level 3.8 g/dL (3.5-5.2); Alkaline Phosphatase 110 U/L (40-130); Aspartate Amino Transferase 23 U/L (0-40); Blood Urea Nitrogen 17 mg/dL (8-23); Calcium 8.4 mg/dL (8.5-10.5); Carbon Dioxide 23 mmol/L (22-29); Chloride 106 mmol/L (98-107); Creatinine Clr Calc Pharmacy 109.6167; Globulin 2.6 g/dL (1.3-4.6); Glucose 107 mg/dL (65-115); Osmolality Calculated 292 mOsm/kg (285-295); Sodium 140 mmol/L (136-145); Total Bilirubin 0.2 mg/dL (0.15-1.2); Total Protein 6.4 g/dL (6.6-8.7)
[2024-02-23] MEDS: palonosetron 0.25 mg/5 mL SDV IVP (10:44)
[2024-02-23] MEDS: dextrose 5% 250 ML 75 ML IV (10:44)
[2024-02-23] MEDS: dexamethasone 4 mg/mL INJ 5 mL 12 MG IVP (10:45)
[2024-02-23] MEDS: leucovorin 860 MG in dextrose 5% 250 ML 62.5 MG IV (12:00)
[2024-02-23] MEDS: oxaliplatin 184 MG in dextrose 5% 250 ML 143.4 MG IV (12:01)
[2024-02-23] MEDS: fluorouraciL 5,200 MG, elastomeric pump 1 PUMP in sodium chloride 0.9% (100 ml) 126 ML IV (14:25)
[2024-02-23 14:30] VITALS: BP 167/93; PULSE 91; RESP 16; TEMP 36.2; O2SAT 99
[2024-02-25 11:10] VITALS: BP 134/84; PULSE 86; RESP 17; TEMP 35.9; O2SAT 97
== END 2024-02-26 23:59 | disposition home or self-care (01) ==
PROVIDERS: Nurse Practitioner Family; PCP Nurse Practitioner; Visit Provider Internal Medicine Medical Oncology
DX: Z45.1 Encounter for adjustment and management of infusion pump (principal); Z53.9 Procedure and treatment not carried out, unspecified reason
CPT/HCPCS: 80053; 82378; 85025; 96368; 96375; 96413; 96415; 96416; 96523; 99205; 99215; J0640; J1100; J2469; J7060; J9190; J9263

== ENCOUNTER 2024-03-27 07:45 | Oncology outpatient (recurring) (ONCR) | payer MEDICARE, SELFPAY ==
[2024-03-01 10:10] LABS: Basophils % 0.3 %; Eosinophils # 0.2 10^3/uL (0.0-0.8); Eosinophils % 4.6 %; Hematocrit 37.4 % (37-53); Lymphocytes # 1.1 10^3/uL (0.8-4.8); Lymphocytes % 29.5 %; Mean Corpuscular HGB Conc 33.7 g/dL (30-55); Mean Corpuscular Hemoglobin 29.5 pg (27-33); Mean Corpuscular Volume 87.6 fl (82-101); Mean Platelet Volume 9.6 fL (7.4-10.4); Monocytes # 0.2 10^3/uL (0.2-0.9); Monocytes % 4.6 %; Neutrophils # 2.27 10^3/uL (1.8-7.7); Neutrophils % 60.7 %; Nucleated Red Blood Cells % 0 %; Platelet Count 196 10^3/cmm (157-399); Red Blood Count 4.27 10^6/uL (3.85-5.65); Red Cell Distribution Width 12.8 % (12.1-15.1); White Blood Count 3.73 10^3/uL (3.29-11.43)
[2024-03-01 10:35] LABS: Alanine Aminotransferase 30 U/L (0-41); Alkaline Phosphatase 110 U/L (40-130); Anion Gap 15.5 (5-19); Aspartate Amino Transferase 26 U/L (0-40); Blood Urea Nitrogen 23 mg/dL (8-23); Calcium 8.6 mg/dL (8.5-10.5); Carbon Dioxide 23 mmol/L (22-29); Chloride 104 mmol/L (98-107); Globulin 2.4 g/dL (1.3-4.6); Glomerular Filtration Rate 113.2 mL/min (90-130); Glucose 362 mg/dL (65-115); Osmolality Calculated 304 mOsm/kg (285-295); Potassium 4.5 mmol/L (3.5-5.1); Sodium 138 mmol/L (136-145); Total Bilirubin 0.3 mg/dL (0.15-1.2); Total Protein 6.4 g/dL (6.6-8.7)
[2024-03-13 07:51] LABS: Basophils % 0.9 %; Eosinophils # 0.3 10^3/uL (0.0-0.8); Eosinophils % 5.9 %; Hematocrit 39.9 % (37-53); Lymphocytes # 1.9 10^3/uL (0.8-4.8); Lymphocytes % 42.7 %; Mean Corpuscular HGB Conc 33.6 g/dL (30-55); Mean Corpuscular Hemoglobin 29.9 pg (27-33); Mean Corpuscular Volume 89.1 fl (82-101); Monocytes # 0.6 10^3/uL (0.2-0.9); Monocytes % 14.5 %; Neutrophils # 1.56 10^3/uL (1.8-7.7); Neutrophils % 35.5 %; Nucleated Red Blood Cells % 0 %; Platelet Count 331 10^3/cmm (157-399); Red Blood Count 4.48 10^6/uL (3.85-5.65); Red Cell Distribution Width 13.2 % (12.1-15.1)
[2024-03-13 08:17] LABS: Alanine Aminotransferase 30 U/L (0-41); Albumin Level 4.1 g/dL (3.5-5.2); Alkaline Phosphatase 136 U/L (40-130); Aspartate Amino Transferase 27 U/L (0-40); Blood Urea Nitrogen 18 mg/dL (8-23); Carbon Dioxide 27 mmol/L (22-29); Chloride 103 mmol/L (98-107); Creatinine Clr Calc Pharmacy 109.7641; Globulin 2.5 g/dL (1.3-4.6); Glucose 216 mg/dL (65-115); Osmolality Calculated 294 mOsm/kg (285-295); Sodium 138 mmol/L (136-145); Total Bilirubin 0.2 mg/dL (0.15-1.2); Total Protein 6.6 g/dL (6.6-8.7)
[2024-03-13 08:22] LABS: Anion Gap 12.4 (5-19); Potassium 4.4 mmol/L (3.5-5.1)
[2024-03-13] MEDS: dextrose 5% 250 ML 75 ML IV (09:11)
[2024-03-13] MEDS: dexamethasone 4 mg/mL INJ 5 mL 12 MG IVP (09:14)
[2024-03-13] MEDS: palonosetron 0.25 mg/5 mL SDV IVP (09:19)
[2024-03-13] MEDS: oxaliplatin 184 MG in dextrose 5% 250 ML 143.4 MG IV (09:56)
[2024-03-13] MEDS: leucovorin 860 MG in dextrose 5% 250 ML 62.5 MG IV (09:58)
[2024-03-13 12:10] VITALS: BP 138/81; PULSE 79; O2SAT 96
[2024-03-13] MEDS: fluorouraciL 5,200 MG, elastomeric pump 1 PUMP in sodium chloride 0.9% (100 ml) 126 ML IV (12:13)
[2024-03-27 08:30] LABS: Basophils % 0.3 %; Eosinophils # 0.2 10^3/uL (0.0-0.8); Eosinophils % 3.9 %; Hematocrit 38.6 % (37-53); Lymphocytes # 1.8 10^3/uL (0.8-4.8); Lymphocytes % 30.6 %; Mean Corpuscular HGB Conc 33.4 g/dL (30-55); Mean Corpuscular Hemoglobin 29.3 pg (27-33); Mean Corpuscular Volume 87.5 fl (82-101); Mean Platelet Volume 9.2 fL (7.4-10.4); Monocytes # 0.6 10^3/uL (0.2-0.9); Monocytes % 9.5 %; Neutrophils # 3.27 10^3/uL (1.8-7.7); Neutrophils % 55.5 %; Nucleated Red Blood Cells % 0 %; Platelet Count 178 10^3/cmm (157-399); Red Blood Count 4.41 10^6/uL (3.85-5.65); Red Cell Distribution Width 13.4 % (12.1-15.1); White Blood Count 5.89 10^3/uL (3.29-11.43)
[2024-03-27 08:55] LABS: Alanine Aminotransferase 34 U/L (0-41); Albumin Level 3.9 g/dL (3.5-5.2); Alkaline Phosphatase 138 U/L (40-130); Anion Gap 12.1 (5-19); Aspartate Amino Transferase 23 U/L (0-40); Blood Urea Nitrogen 20 mg/dL (8-23); Calcium 8.9 mg/dL (8.5-10.5); Carbon Dioxide 25 mmol/L (22-29); Chloride 104 mmol/L (98-107); Creatinine Clr Calc Pharmacy 110.4729; Globulin 2.5 g/dL (1.3-4.6); Glucose 172 mg/dL (65-115); Osmolality Calculated 291 mOsm/kg (285-295); Potassium 4.1 mmol/L (3.5-5.1); Sodium 137 mmol/L (136-145); Total Bilirubin 0.3 mg/dL (0.15-1.2); Total Protein 6.4 g/dL (6.6-8.7)
[2024-03-27] MEDS: dextrose 5% 250 ML 75 ML IV (09:21)
[2024-03-27] MEDS: dexamethasone 4 mg/mL INJ 5 mL 12 MG IVP (09:21)
[2024-03-27] MEDS: palonosetron 0.25 mg/5 mL SDV IVP (09:21)
[2024-03-27] MEDS: leucovorin 860 MG in dextrose 5% 250 ML 62.5 MG IV (10:08)
[2024-03-27] MEDS: oxaliplatin 184 MG in dextrose 5% 250 ML 143.4 MG IV (10:09)
[2024-03-27] MEDS: fluorouraciL 5,200 MG, elastomeric pump 1 PUMP in sodium chloride 0.9% (100 ml) 126 ML IV (12:19)
[2024-03-27 12:21] VITALS: BP 153/96; PULSE 87; RESP 18; TEMP 35.8; O2SAT 95
== END 2024-03-27 23:59 | disposition home or self-care (01) ==
PROVIDERS: Nurse Practitioner Family; PCP Nurse Practitioner; Visit Provider Internal Medicine Hematology & Oncology
DX: Z53.9 Procedure and treatment not carried out, unspecified reason (principal); Z51.11 Encounter for antineoplastic chemotherapy; C18.7 Malignant neoplasm of sigmoid colon; Z79.899 Other long term (current) drug therapy; Z79.52 Long term (current) use of systemic steroids
CPT/HCPCS: 80053; 85025; 96368; 96375; 96413; 96415; 96416; 99214; J0640; J1100; J2469; J7060; J9190; J9263

== ENCOUNTER 2024-04-24 07:56 | Oncology outpatient (recurring) (ONCR) | payer MEDICARE, SELFPAY ==
[2024-04-24 08:44] LABS: Basophils % 0.7 %; Eosinophils # 0.3 10^3/uL (0.0-0.8); Eosinophils % 4.5 %; Hematocrit 40.4 % (37-53); Lymphocytes % 34.4 %; Mean Corpuscular HGB Conc 32.9 g/dL (30-55); Mean Corpuscular Hemoglobin 29.6 pg (27-33); Mean Platelet Volume 9.4 fL (7.4-10.4); Monocytes # 0.6 10^3/uL (0.2-0.9); Monocytes % 10.1 %; Neutrophils # 2.84 10^3/uL (1.8-7.7); Neutrophils % 49.4 %; Nucleated Red Blood Cells % 0 %; Platelet Count 225 10^3/cmm (157-399); Red Blood Count 4.49 10^6/uL (3.85-5.65); White Blood Count 5.75 10^3/uL (3.29-11.43)
[2024-04-24 09:10] LABS: Alanine Aminotransferase 31 U/L (0-41); Albumin Level 4.2 g/dL (3.5-5.2); Alkaline Phosphatase 149 U/L (40-130); Aspartate Amino Transferase 28 U/L (0-40); Blood Urea Nitrogen 20 mg/dL (8-23); Calcium 8.6 mg/dL (8.5-10.5); Carbon Dioxide 24 mmol/L (22-29); Chloride 102 mmol/L (98-107); Creatinine Clr Calc Pharmacy 110.9453; Globulin 2.2 g/dL (1.3-4.6); Glucose 230 mg/dL (65-115); Osmolality Calculated 292 mOsm/kg (285-295); Sodium 136 mmol/L (136-145); Total Bilirubin 0.3 mg/dL (0.15-1.2); Total Protein 6.4 g/dL (6.6-8.7)
[2024-04-24 09:12] LABS: Anion Gap 14.3 (5-19); Potassium 4.3 mmol/L (3.5-5.1)
[2024-04-24] MEDS: dextrose 5% 250 ML 75 ML IV (10:25)
[2024-04-24] MEDS: palonosetron 0.25 mg/5 mL SDV IVP (10:27)
[2024-04-24] MEDS: dexamethasone 4 mg/mL INJ 5 mL 12 MG IVP (10:29)
[2024-04-24] MEDS: leucovorin 860 MG in dextrose 5% 250 ML 62.5 MG IV (11:20)
[2024-04-24] MEDS: oxaliplatin 184 MG in dextrose 5% 250 ML 143.4 MG IV (11:20)
[2024-04-24 13:32] VITALS: BP 132/77; PULSE 90; RESP 17; TEMP 36.1; O2SAT 97
[2024-04-24] MEDS: fluorouraciL 5,200 MG, elastomeric pump 1 PUMP in sodium chloride 0.9% (100 ml) 126 ML IV (13:34)
== END 2024-04-27 23:59 | disposition home or self-care (01) ==
PROVIDERS: Nurse Practitioner Family; PCP Nurse Practitioner; Visit Provider Internal Medicine Hematology & Oncology
DX: Z51.11 Encounter for antineoplastic chemotherapy (principal); C18.7 Malignant neoplasm of sigmoid colon; Z79.899 Other long term (current) drug therapy; Z79.52 Long term (current) use of systemic steroids
CPT/HCPCS: 80053; 85025; 96375; 96413; 96415; 99214; J0640; J1100; J2469; J7060; J9190; J9263

== ENCOUNTER 2024-05-08 07:41 | Oncology outpatient (recurring) (ONCR) | payer MEDICARE, SELFPAY ==
[2024-05-08 08:20] LABS: Basophils % 0.7 %; Eosinophils # 0.2 10^3/uL (0.0-0.8); Hematocrit 38.6 % (37-53); Lymphocytes # 1.2 10^3/uL (0.8-4.8); Lymphocytes % 26.7 %; Mean Corpuscular HGB Conc 32.9 g/dL (30-55); Mean Corpuscular Hemoglobin 29.2 pg (27-33); Mean Corpuscular Volume 88.7 fl (82-101); Mean Platelet Volume 9.4 fL (7.4-10.4); Monocytes # 0.5 10^3/uL (0.2-0.9); Monocytes % 11.4 %; Neutrophils # 2.46 10^3/uL (1.8-7.7); Nucleated Red Blood Cells % 0 %; Platelet Count 208 10^3/cmm (157-399); Red Blood Count 4.35 10^6/uL (3.85-5.65); Red Cell Distribution Width 13.9 % (12.1-15.1); White Blood Count 4.39 10^3/uL (3.29-11.43)
[2024-05-08 08:54] LABS: Carcinoembryonic Antigen 3.5 ng/mL (0.0-4.7)
[2024-05-08 09:05] LABS: Alanine Aminotransferase 35 U/L (0-41); Albumin Level 3.9 g/dL (3.5-5.2); Alkaline Phosphatase 134 U/L (40-130); Blood Urea Nitrogen 26 mg/dL (8-23); Calcium 8.5 mg/dL (8.5-10.5); Carbon Dioxide 22 mmol/L (22-29); Chloride 100 mmol/L (98-107); Creatinine Clr Calc Pharmacy 98.2769; Globulin 2.4 g/dL (1.3-4.6); Glomerular Filtration Rate 84.7 mL/min (90-130); Glucose 379 mg/dL (65-115); Osmolality Calculated 298 mOsm/kg (285-295); Sodium 134 mmol/L (136-145); Total Bilirubin 0.2 mg/dL (0.15-1.2); Total Protein 6.3 g/dL (6.6-8.7)
[2024-05-08 09:06] LABS: Anion Gap 16.5 (5-19); Aspartate Amino Transferase 22 U/L (0-40); Lactate Dehydrogenase 202 U/L (135-225); Potassium 4.5 mmol/L (3.5-5.1)
[2024-05-08] MEDS: dextrose 5% 250 ML 75 ML IV (10:12)
[2024-05-08] MEDS: palonosetron 0.25 mg/5 mL SDV IVP (10:12)
[2024-05-08] MEDS: dexamethasone 4 mg/mL INJ 5 mL 12 MG IVP (10:13)
[2024-05-08] MEDS: oxaliplatin 184 MG in dextrose 5% 250 ML 143.4 MG IV (10:53)
[2024-05-08] MEDS: leucovorin 860 MG in dextrose 5% 250 ML 62.5 MG IV (10:53)
[2024-05-08] MEDS: fluorouraciL 5,200 MG, elastomeric pump 1 PUMP in sodium chloride 0.9% (100 ml) 126 ML IV (13:03)
== END 2024-05-27 23:59 | disposition home or self-care (01) ==
PROVIDERS: PCP Nurse Practitioner; Visit Provider Internal Medicine Hematology & Oncology
DX: Z51.11 Encounter for antineoplastic chemotherapy; C18.7 Malignant neoplasm of sigmoid colon; Z79.899 Other long term (current) drug therapy; Z79.52 Long term (current) use of systemic steroids
CPT/HCPCS: 80053; 82378; 83615; 83735; 85025; 96365; 96366; 96375; 96413; 96415; 96416; 99214; J0640; J1100; J2469; J7060; J9190; J9263

== ENCOUNTER 2024-09-25 13:39 | Oncology outpatient (recurring) (ONCR) | payer MEDICARE, SELFPAY | END 2024-09-25 23:59 | disposition home or self-care (01) | PROVIDERS: PCP Nurse Practitioner; Visit Provider Internal Medicine Medical Oncology | DX: C18.7 Malignant neoplasm of sigmoid colon (principal); Z72.0 Tobacco use; F12.90 Cannabis use, unspecified, uncomplicated; Z92.21 Personal history of antineoplastic chemotherapy | CPT/HCPCS: 99214 ==

== ENCOUNTER → 2024-09-28 13:09 | Outpatient (BNVA) | payer MEDICARE, SELFPAY | PROVIDERS: PCP Nurse Practitioner; Referring Provider Internal Medicine Medical Oncology; Visit Provider Student in an Organized Health Care Education/Training Program | DX: Z95.828 Presence of other vascular implants and grafts (principal) | CPT/HCPCS: 99204 ==

== ENCOUNTER 2024-10-04 10:52 | Day surgery (SDC) | payer MEDICARE, SELFPAY ==
[2024-10-04 11:12] VITALS: BP 166/102; PULSE 86; RESP 18; TEMP 36.5; O2SAT 98
[2024-10-04 11:13] VITALS: BMI 29.8
--- NOTE | 2024-10-04 11:16 | ANES.PREANE2 ---
Pre-Anesthetic Assessment Height/Weight: Height 6 ft Temp Pulse Resp BP Pulse Ox O2 Del Method 97.7 F 86 18 166/102 98 Room Air 10/04/24 11:12 10/04/24 11:12 10/04/24 11:12 10/04/24 11:12 10/04/24 11:12 10/04/24 11:12 Preop Diagnosis: Requesting port removal Operation Date: 10/04/24 12:35 Proposed Procedures p Portacath Removal [id number] Z95.828(Not Applicable) - Ravi Felix MD Was Beta Augustine taken within 24 hours: N/A Was Clonidine taken within 24 hours: N/A Social No alcohol and No tobacco Exam alert, oriented x 3 and regular rate & rhythm Airway Submandibular: within normal limits Cervical ROM: within normal limits Mallampati: Class III Dentition: full Comments: Comments: Poor dentition, denies any loose Anesthetic Plan ASA status: 4 Anesthesia: MAC Other: No prior issues with anesthesia NPO since yesterday Insulin-dependent diabetes. Will track BS History of hypertension on lisinopril Patient has malignant neoplasm of the sigmoid colon. Underwent multiple cycles of chemotherapy but does not want to pursue further treatment. Patient is requesting port removal at this time Plan for MAC anesthesia with local via surgeon Medications/Allergies Home Medications ?Medication ?Instructions ?Recorded ?Confirmed ?Last Taken ?Type atorvastatin 40 mg tablet 40 mg PO QPM 12/09/21 10/03/24 10/03/24 History glimepiride 2 mg tablet 1 mg (1/2 x 2 mg) PO QAM #30 tabs 12/10/21 10/03/24 10/03/24 Rx insulin degludec 200 unit/mL (3 See Rx Instructions .Route 02/26/22 10/03/24 10/03/24 Rx mL) subcutaneous pen (Tresiba .COMPLEX #9 mL FlexTouch U-200 insulin) zinc gluconate 50 mg tablet 50 mg PO DAILY 02/02/24 10/03/24 10/03/24 History dapagliflozin propanediol 10 mg 10 mg PO DAILY 03/27/24 10/03/24 10/03/24 History tablet (Farxiga) lisinopril 20 mg tablet 20 mg PO DAILY 03/27/24 10/03/24 10/03/24 History metformin 850 mg tablet 850 mg PO DAILY 03/27/24 10/03/24 10/03/24 History escitalopram oxalate 20 mg tablet 20 mg PO DAILY 10/03/24 10/03/24 10/03/24 History Allergies Allergy/AdvReac Type Severity Reaction Status Date / Time Penicillins Allergy Unknown Verified 09/28/24 13:19 [facility] Anesthesia Medical History Hyperlipidemia History of cardioversion Colon cancer Depression with anxiety Obesity Coronary artery disease Type 2 diabetes mellitus Hypertension Surgical History History of appendectomy History of coronary artery stent placement (2013) History of partial colectomy (01/17/24) Robotic low anterior resection Family History Father Parkinson disease Mother Emphysema lung Sister Stroke Social History Smoking and tobacco/nicotine status: tobacco/nicotine user, details unknown (smokeless tobacco and marijuana) smokeless tobacco Smokeless tobacco user: snuff Smokeless tobacco details: smokeless tobacco use 40 years, marijuana use 20 years Alcohol intake: never Substance/Drug Use: never Data Anesthesia Cardiac Studies: Echocardiogram Limited Views 12/10/21 Sestamibi Stress Test (Cardiology) 12/10/21
[2024-10-04 11:26] LABS: Glucose Point of Care 259 mg/dL (70-110)
[2024-10-04] MEDS: sodium chloride 0.9% 1,000 ML 30 ML IV (11:27)
--- NOTE | 2024-10-04 11:29 | W.PM.OPSUD ---
Surgery/Procedure H&P Update DATE OF PROCEDURE: October 04, 2024 DATE H&P PERFORMED: 09/28/24 H&P UPDATE INFORMATION: I have reviewed H&P completed within last 30 days, I have examined patient prior to procedure and No changes to prior documentation PREOP DIAGNOSIS: Requesting port removal PLANNED PROCEDURE: Operation Date: 10/04/24 12:35 Proposed Procedures p Portacath Removal [id number] Z95.828(Not Applicable) - Ravi Felix MD
[2024-10-04] MEDS: VANCOMYCIN ADD-Vantage 1,000 MG in 0.9% NaCl ADD-Vantage 250 ML 250 MG IV (11:38)
[2024-10-04] MEDS: lidocaine-epi 1% 20 mL INJ 5 ML INJECTION (12:05)
[2024-10-04] MEDS: BUPivacaine 0.5% INJ 10 mL 5 ML INJECTION (12:06)
[2024-10-04 12:18] VITALS: BP 136/79; PULSE 88; RESP 18; TEMP 36.7; O2SAT 96
[2024-10-04 12:23] VITALS: BP 120/67; PULSE 85; RESP 20; O2SAT 95
--- NOTE | 2024-10-04 12:25 | P.OP_ITS ---
Operative Report Date of procedure: October 04, 2024 Pre-op diagnosis: Colon cancer Post-op diagnosis: same Post-op findings: Port-A-Cath in right chest. Removed in its entirety. Sent to micro for cultures Procedure done: Port-A-Cath removal Implants: N/A Specimens removed/disposition: Port-A-Cath removed and sent to micro for cultures Pathology: none sent Surgeon: Ravi Felix MD Digital Field Service Technician: N/A Anesthesia: MAC Estimated blood loss (mL): 5 Complications: N/A Findings: Port-A-Cath in right chest removed in its entirety. Sent to micro for cultures. Condition: stable Disposition: same day Brief History: 64-year-old male with a history of colon cancer who has a port for chemotherapy. Patient is no longer willing to pursue chemotherapy and wishes it removed. Discussed risk and benefits and patient agreed to proceed with Port-A-Cath removal. Procedure: After obtaining consent patient was brought into the operating room. Laid supine on the operating table. SCDs were on and working. Antibiotics were administered. The right chest was prepped and draped in usual sterile fashion. An incision was carried out over the port site. Electrocautery was used to dissect around the port. The port was dissected free and it was pulled out in its entirety together with the cuff and the catheter. Pressure was held over the catheter trajectory for 5 minutes. Electrocautery was used to obtain adequate hemostasis. Skin was closed using Monocryl in a running fashion. Surgical glue was applied over it. The patient woke up from anesthesia without any complications and transferred to PACU.
[2024-10-04 12:28] VITALS: BP 134/80; PULSE 84; RESP 20; TEMP 36.8; O2SAT 95
[2024-10-04 12:33] VITALS: BP 136/79; PULSE 85; RESP 22; O2SAT 95
--- NOTE | 2024-10-04 13:35 | ANE.PACU2 ---
Inpatient post-anesthesia follow up: Airway intact: Yes Vital signs: Temperature 98.2 F Pulse Rate 85 Respiratory Rate 22 Blood Pressure 136/79 Pulse Oximetry 95 Oxygen Delivery Me thod Room Air Oxygen Flow Rate Fraction of Inspir ed Oxygen Hydration adequate: Yes Nausea and vomiting: No Pain level: 1 Mental status: Baseline
== END 2024-10-04 13:35 | disposition home or self-care (01) ==
PROVIDERS: PCP Nurse Practitioner; Visit Provider Student in an Organized Health Care Education/Training Program
PROC: (CPT 36589; principal; 2024-10-04 12:25)
DX: Z45.2 Encounter for adjustment and management of vascular access device (principal); C18.7 Malignant neoplasm of sigmoid colon; E11.9 Type 2 diabetes mellitus without complications; E78.5 Hyperlipidemia, unspecified; I25.10 Atherosclerotic heart disease of native coronary artery without angina pectoris; I10 Essential (primary) hypertension; F17.220 Nicotine dependence, chewing tobacco, uncomplicated; K08.89 Other specified disorders of teeth and supporting structures; Z79.899 Other long term (current) drug therapy; Z79.4 Long term (current) use of insulin; Z79.84 Long term (current) use of oral hypoglycemic drugs; Z88.0 Allergy status to penicillin; Z95.5 Presence of coronary angioplasty implant and graft; Z90.49 Acquired absence of other specified parts of digestive tract
CPT/HCPCS: 36590; 36416; 82962; 87070; 87075; 87205; A4216; J2250; J2704; J3010; J3370; J3490; J7030; J7050; J9999